=== PATIENT | female | born 1960 | race African-American/Black ===

== ENCOUNTER 2017-08-22 16:24 | Emergency (ER) | payer MEDICAID ==
[~2017-08-22] VITALS: Ht 160 cm; Wt 116.0 kg
[2017-08-22] MEDS ORDERED: IBUPROFEN 400MG TABLET PO ONE (18:00)
[2017-08-22 18:56] VITALS: BP 147/93
== END 2017-08-22 19:03 | disposition home or self-care (01) ==
LOC: ER 16:45
DX: L03.116 Cellulitis of left lower limb (principal); I10 Essential (primary) hypertension; E78.00 Pure hypercholesterolemia, unspecified; R73.03 Prediabetes; E03.9 Hypothyroidism, unspecified
CPT/HCPCS: 73630; 99284